=== PATIENT | female | born 1955 | race Caucasian/White ===

== ENCOUNTER 2016-12-11 17:57 | Emergency (ER) | payer OTHER ==
[2016-12-11 18:43] VITALS: BP 121/82; PULSE 70; RESP 16; TEMP 98.1; O2SAT 94
--- NOTE | 2016-12-11 18:47 | UCPHY ---
H & P Time Seen by Provider: 12/11/16 18:31 Patient Type: New HPI/ROS: This patient presents with a chief complaint of plugged ears bilaterally which began 2 or 3 days ago. Her hearing is somewhat diminished. She has some nasal congestion but no sore throat, cough or fever. She has had trouble with wax in her ears previously. Smoking Status: Never smoked Physical Exam: GENERAL: Well-appearing, well-nourished and in no acute distress. HEAD: Atraumatic, normocephalic. EYES: sclera anicteric, conjunctiva are normal. ENT: TMs normal, nares patent, oropharynx clear without exudates. Moist mucous membranes. There is some wax present in the external canals however this is not enough to cause symptoms. NECK: Normal range of motion, supple without lymphadenopathy or JVD. LUNGS: No respiratory distress HEART: Regular rate and rhythm EXTREMITIES: Normal range of motion, NEUROLOGICAL: Cranial nerves II through XII grossly intact. Normal speech, normal gait. PSYCH: Normal mood, normal affect. SKIN: Warm, dry, normal turgor, no visible rashes or lesions. Constitutional: Initial Vital Signs Temperature (C) 36.7 C 12/11/16 18:33 Heart Rate 70 12/11/16 18:33 Respiratory Rate 16 12/11/16 18:33 Blood Pressure 121/82 H 12/11/16 18:33 O2 Sat (%) 94 12/11/16 18:33 O2 Delivery Mode Room Air Medical Decision Making Differential Diagnosis: This patient's symptoms do not appear to be caused by a cerumen impaction or otitis media. The only possibility that I can think of is eustachian tube dysfunction. Departure - Departure Disposition: Home, Routine, Self-Care Clinical Impression: Eustachian tube dysfunction Qualifiers: Laterality: bilateral Qualified Code(s): H69.83 - Other specified disorders of Eustachian tube, bilateral Condition: Good Instructions: Barotrauma (ED) Additional Instructions: If your symptoms have not resolved in for 5 days you should follow-up with an ear nose and throat physician. A name is provided to in these pages. Try using a nasal decongestant spray such as Afrin. Activity as tolerated. Referrals: Chi Gonzalez MD [Medical Doctor] - As per Instructions - PQRS PQRS Measurement: Not applicable
== END 2016-12-11 18:50 | disposition home or self-care (01) ==
LOC: CED 17:57
DX: H69.83 Other specified disorders of Eustachian tube, bilateral (principal)
CPT/HCPCS: 99203-PO; G0463-PO